=== PATIENT | female | born 1995 | race Caucasian/White ===

== ENCOUNTER 2016-09-15 23:03 | Outpatient (CLI) | payer MEDICAID ==
[~2016-09-15] VITALS: Ht 143.5 cm; Wt 70.6 kg
[2016-09-15 23:30] VITALS: BP 112/59; PULSE 110; RESP 18
[2016-09-15] MEDS ORDERED: PRENAT PO (23:32)
[2016-09-16] MEDS ORDERED: LACTATED RINGER'S 1,000 ML IV ONE (00:30)
[2016-09-16 00:34] LABS: BASOPHILS % 0.3 % (0.0-2.0); EOSINOPHILS # 0.2 10^3/ul (0.0-0.5); EOSINOPHILS % 1.4 % (0.0-7.0); HEMATOCRIT 29.8 % (37.0-47.0); LYMPHOCYTES # 2.7 10^3/ul (0.8-2.9); MEAN CORPUSCULAR HEMOGLOBIN 29.4 pg (29.0-33.0); MEAN CORPUSCULAR HGB CONC 33.6 g/dl (32.0-37.0); MEAN CORPUSCULAR VOLUME 87.6 fl (72.0-104.0); MEAN PLATELET VOLUME 9.9 fl (7.4-10.4); MONOCYTE # 0.7 10^3/ul (0.3-0.9); MONOCYTES % 6.7 % (0.0-13.0); NEUTROPHIL # 6.8 10^3/ul (1.6-7.5); NEUTROPHILS % 65.2 % (30.0-74.0); PLATELET COUNT 323 10^3/UL (140-415); RED CELL DISTRIBUTION WIDTH 13.1 % (11.5-14.5); WHITE BLOOD COUNT 10.4 10^3/ul (4.8-10.8)
[2016-09-16 00:46] LABS: ADD UMIC YES; UR AMORPHOUS CRYSTAL FEW /HPF (NONE SEEN); UR ASCORBIC ACID NEGATIVE (NEGATIVE); UR BILIRUBIN (Dip) NEGATIVE (NEGATIVE); UR BLOOD (Dip) NEGATIVE (NEGATIVE); UR CLARITY CLOUDY (CLEAR); UR COLOR YELLOW (YELLOW); UR GLUCOSE (Dip) 3+ mg/dL (NEGATIVE); UR KETONES (Dip) TRACE mg/dL (NEGATIVE); UR LEUKOCYTE ESTERASE (Dip) 3+ Leu/ul (NEGATIVE); UR NITRITE (Dip) NEGATIVE (NEGATIVE); UR RBC 1 /HPF (0-5); UR SPECIFIC GRAVITY (Dip) 1.016 (1.003-1.030); UR SQUAMOUS EPITHELIAL CELL MANY /HPF (FEW); UR TOTAL PROTEIN (Dip) NEGATIVE (NEGATIVE); UR UROBILINOGEN (Dip) NEGATIVE (NEGATIVE)
[2016-09-16 00:54] LABS: ALBUMIN 3.4 g/dl (3.3-4.9); ALBUMIN/GLOBULIN RATIO 0.97; CREATININE 0.53 mg/dl (0.44-1.00); POTASSIUM 3.5 mmol/L (3.5-5.1); TOTAL PROTEIN 6.9 g/dl (6.1-8.1)
[2016-09-16] MEDS ORDERED: LACTATED RINGER'S 1,000 ML IV SCH (01:00)
--- NOTE | 2016-09-16 01:45 | RADRPT ---
PROCEDURE: US OB biophysical profile. CLINICAL INDICATION: Contractions TECHNIQUE: Multiple sonographic images of the pelvis were obtained. The images were reviewed on a PACS workstation. COMPARISON: No pertinent prior examinations were submitted for comparison. FINDINGS: There is a single viable intrauterine gestation. Cardiac activity is present with 144 beats per min lizeth. There is a vertex presentation. The placenta is anterior, grade 1 appearance. There is a normal amount of amniotic fluid with an TEJAS = 13.4 cm. The cervix is long and closed, measuring up to 4.1 cm. Biophysical profile: movement 2/2 tone 2/2. breathing 2/2 TEJAS 2/2 Total 09/16 IMPRESSION: Normal biophysical profile. RPTAT: HIKT . .Reggie Rothman MD, Date Time Electronically viewed and signed by .Reggie Rothman MD, on 09/16/2016 01:45 .T/
--- NOTE | 2016-09-16 01:45 | RADRPT ---
PROCEDURE: US OB. CLINICAL INDICATION: Contractions. TECHNIQUE: Multiple sonographic images of the pelvis were obtained. Transabdominal imaging only w as performed. The images were reviewed on a PACS workstation. COMPARISON: 07/02/2016. FINDINGS: Single live intrauterine is identified. Cardiac activity is present with 148 beats per mi nute. There is a vertex presentation. Measurements: BPD = 30 weeks 4 days. HC = 30 weeks 6 days. AC = 31 weeks 6 days. FL = 30 weeks 5 days. Estimated gestational age of approximately 31 weeks 0 days. The estimated date of delivery is 11/18/2016. The EFW = 1742 g which is at the 64th percentile. IMPRESSION: Single live intrauterine gestation of approximately 31 weeks 0 days. RPTAT: HMVK .Krishna Cruz MD, Date Time Electronically viewed and signed by .Krishna Cruz MD, on 09/16/2016 01:44 .K/
[2016-09-16] MEDS ORDERED: TERBUTALINE 1 ML ONE (03:50)
[2016-09-16] MEDS ORDERED: TERBUTALINE 1 MG/ML INJ SC ONE (04:00)
--- NOTE | 2016-09-16 04:00 | PN ---
Triage Information Date/Time August 16, 2016 Reason for visit: Uterine contractions Weeks of Gestation 30 weeks 5 days /Para 3/2 Diabetes: none Hypertention: none Additional information C/O contractions. H/O labor and delivery at 33 weeks for her first . Her 2nd baby delivered at 38 weeks. PMHx: none. PSHx: none. NKDA. Objective Vital Signs Date Time Temp Pulse Resp B/P Pulse Ox O2 Delivery O2 Flow Rate FiO2 09/15/16 23:30 98.4 110 18 112/59 Room Air Heart Rate Comments Baseline 140 bpm with accels to 160 bpm. No decels. Contractions: 6-10 Minutes Apart Results/Medications Result Diagram: 09/16/16 0015 09/16/16 0015 Results 24 hrs Laboratory Tests Test 09/15/16 23:50 09/16/16 00:15 Urine Color YELLOW Urine Clarity CLOUDY A Urine pH 7.0 Urine Specific [place] 1.016 Urine Ketones TRACE A Urine Nitrite NEGATIVE Urine Bilirubin NEGATIVE Urine Urobilinogen NEGATIVE Urine Leukocyte Esterase 3+ H Urine Microscopic RBC 1 Urine Microscopic WBC 4 Urine Squamous Epithelial Cells MANY A Urine Amorphous Crystals FEW A Urine Hemoglobin NEGATIVE Urine Glucose 3+ H Urine Total Protein NEGATIVE White Blood Count 10.4 Red Blood Count 3.40 L Hemoglobin 10.0 L Hematocrit 29.8 L Mean Corpuscular Volume 87.6 Mean Corpuscular Hemoglobin 29.4 Mean Corpuscular Hemoglobin Concent 33.6 Red Cell Distribution Width 13.1 Platelet Count 323 Mean Platelet Volume 9.9 Neutrophils % 65.2 Lymphocytes % 26.0 Monocytes % 6.7 Eosinophils % 1.4 Basophils % 0.3 Nucleated Red Blood Cells % 0.0 Neutrophils # 6.8 Lymphocytes # 2.7 Monocytes # 0.7 Eosinophils # 0.2 Basophils # 0.0 Nucleated Red Blood Cells # 0.0 Sodium Level 139 Potassium Level 3.5 Chloride Level 103 Carbon Dioxide Level 23 Anion Gap 17 H Blood Urea Nitrogen 7 Creatinine 0.53 Glucose Level 107 Calcium Level 9.0 Total Bilirubin 0.0 L Direct Bilirubin 0.00 Indirect Bilirubin 0.0 Aspartate Amino Transf (AST/SGOT) 24 Alanine Aminotransferase (ALT/SGPT) 39 Alkaline Phosphatase 130 H Total Protein 6.9 Albumin 3.4 Globulin 3.50 H Albumin/Globulin Ratio 0.97 Medications Current Medications Lactated Ringer's (Lr) 1,000 ml @ 125 mls/hr Q8H IV Last administered on t 01:48; Admin Dose 125 MLS/HR; Start 09/16/16 at 01:00 Terbutaline Sulfate (Brethine) 0.25 mg ONCE ONCE SC ; Start 09/16/16 at 04:00; Stop 09/16/16 at 04:01; Status UNV Imaging Results BPP 09/16. AF! 13.4 cm. Cervix is long, closed and 4.1 cm. EFW 1742 grams (S=D). VTX. Disposition: Discharge Assessment/Plan A: IUP at 30w 5d. False labor. H/O labor with delivery. P: IV hydration. Terbutaline SQ x 1; if needs a repeat, will give. If UC's adriana then will d/c home with PTL precautions. BART PATTERSON MD Sep 16, 2016 04:00
== END 2016-09-16 05:10 | disposition home or self-care (01) ==
LOC: L-D 23:03 → OBT 23:03
PROVIDERS: ATTEND Obstetrics & Gynecology
DX: O62.9 Abnormality of forces of labor, unspecified (principal); Z3A.30 30 weeks gestation of pregnancy
CPT/HCPCS: 36415; 76815; 76817; 76818; 80053; 81001; 85025; 96360; 96361; 96372; J3105; J7120; Z7500; G0463

== ENCOUNTER 2016-10-31 00:25 | Outpatient (CLI) | payer MEDICAID ==
[~2016-10-31] VITALS: Ht 144.8 cm; Wt 72.6 kg
[~2016-10-31 00:25] MED LIST: PRENAT PO
--- NOTE | 2016-10-31 00:47 | TRIAGE ---
OB Triage Datetime Report Generated by CPN: 10/31/2016 00:47 Datetime: 10/31/2016 00:47 Time of Arrival: 10/31/2016 00:22 EGA: 37.1 Movement: Decreased Contractions: Irregular Patient Complaints: Contractions Datetime: 09/16/2016 04:49 Stage of : OB Triage Monitor Mode: External Quality: Mild Pattern: Normal: <= 5 Contractions in 10 Minutes Resting Tone [place]: Relaxed Heart Rate FHR Baseline Rate: 135 Monitor Mode: External US FHR Baseline Changes: No Baseline Change Variability: Moderate 6-25 bpm Accelerations: 15X15 Decelerations: None Category: Category I Pain Assessment Pain Scale: 2 Pain Presence: Intermittent Pain Type: Cramping Pain Location: Abdomen Datetime: 09/16/2016 03:26 Stage of : OB Triage Datetime: 09/16/2016 03:20 Stage of : OB Triage Monitor Mode: External Quality: Mild Pattern: Normal: <= 5 Contractions in 10 Minutes Resting Tone [place]: Relaxed Heart Rate FHR Baseline Rate: 135 Monitor Mode: External US FHR Baseline Changes: No Baseline Change Variability: Moderate 6-25 bpm Accelerations: 15X15 Category: Category I Datetime: 09/16/2016 02:50 Stage of : OB Triage Monitor Mode: External Quality: Mild Pattern: Normal: <= 5 Contractions in 10 Minutes Resting Tone [place]: Relaxed Heart Rate FHR Baseline Rate: 135 Monitor Mode: External US Variability: Moderate 6-25 bpm Accelerations: 15X15 Decelerations: None Category: Category I Pain Assessment Pain Scale: 4 Pain Presence: Intermittent Pain Type: Contraction Pain Location: Abdomen Datetime: 09/16/2016 01:43 Monitor Mode: Palpation Resting Tone [place]: Relaxed Datetime: 09/16/2016 01:23 Stage of : OB Triage Heart Rate FHR Baseline Rate: 140 Monitor Mode: External US FHR Baseline Changes: No Baseline Change Variability: Moderate 6-25 bpm Accelerations: 15X15 Decelerations: None Category: Category I Datetime: 09/16/2016 00:41 Stage of : OB Triage Monitor Mode: External US FHR Baseline Changes: No Baseline Change Variability: Moderate 6-25 bpm Datetime: 09/16/2016 00:30 Stage of : OB Triage Monitor Mode: External Quality: Mild Pattern: Normal: <= 5 Contractions in 10 Minutes Resting Tone [place]: Relaxed Heart Rate FHR Baseline Rate: 140 Monitor Mode: External US FHR Baseline Changes: No Baseline Change Variability: Moderate 6-25 bpm Accelerations: 15X15 Decelerations: None Category: Category I Datetime: 09/15/2016 23:35 Stage of : OB Triage Labor Evaluation Frequency: 3-5 Monitor Mode: External Duration (sec)2399: 50-90 Quality: Mild Pattern: Normal: <= 5 Contractions in 10 Minutes Resting Tone [place]: Relaxed Heart Rate FHR Baseline Rate: 140 Monitor Mode: External US FHR Baseline Changes: No Baseline Change Variability: Moderate 6-25 bpm Accelerations: 15X15 Decelerations: None Category: Category I Datetime: 09/15/2016 23:26 Time of Arrival: 09/15/2016 22:58 EGA: 30.4 Arrived By: Wheelchair Arrived From: Home Chief Complaint: w/ hx PTD @ 34 wks w/ c/o ucs Movement: Present Contractions: Irregular Time Contractions Began: 09/15/2016 17:00 Contractions: Q10-15 Rupture of Membranes: Denies Vaginal Bleeding: None Vaginal Discharge: Denies Recent Sexual Intercouse: Denies Abdominal Trauma: Not Applicable Patient Complaints: Cramping Time Provider Notified: 09/15/2016 23:35 Provider Notified: Dr Kolb Initial Plan: EFM, UA,CBC,CMP,CVL,EFW,BPP,IV hydration Datetime: 09/15/2016 23:13 Stage of : OB Triage Maternal Assessment Level of Consciousness: Fully Conscious Headache: Denies Blurred Vision: No Respiratory Effort: Unlabored Nausea/Vomiting: Denies RUQ Epigastric Pain: Denies Facial Edema: None Labor Evaluation Frequency: placed Monitor Mode: External Resting Tone [place]: Relaxed Monitor Mode: External US Comments: FHT 150 Pain Assessment Pain Scale: 7 Pain Presence: Intermittent Pain Type: Cramping Pain Location: Abdomen
[2016-10-31 00:55] VITALS: Ht 144.8 cm; Wt 72.6 kg
[2016-10-31 00:56] VITALS: BP 113/65; PULSE 90; RESP 18
--- NOTE | 2016-10-31 02:06 | RADRPT ---
PROCEDURE: OB ultrasound for biophysical profile CLINICAL INDICATION: Contractions. TECHNIQUE: Multiple sonographic images of the gravid uterus performed. The images were reviewed on a PACS workstation. COMPARISON: 09/16/2016 FINDINGS: A single live intrauterine is identified with heart rate of 144 bpm. Fet us is in a cephalic presentation. Placenta is located anterior. Biophysical profile: breathing movement = 2/2 tone = 2/2 motion = 2/2 TEJAS = 2/2 TEJAS = 11.3 cm. Cervix is 4.1 cm in length. IMPRESSION: 1. Single live intrauterine gestation. 2. Biophysical profile = 09/16. 3. TEJAS = 11.3 cm. RPTAT: HMVK .Krishna Cruz MD, Date Time Electronically viewed and signed by .Krishna Cruz MD, MD on 10/31/2016 02:06 .K/
--- NOTE | 2016-10-31 02:09 | RADRPT ---
PROCEDURE: US OB. CLINICAL INDICATION: Labor. TECHNIQUE: Multiple sonographic images of the pelvis were obtained. Transabdominal imaging only w as performed. The images were reviewed on a PACS workstation. COMPARISON: 09/16/2016. FINDINGS: Single live intrauterine is identified. Cardiac activity is present with 157 beats per mi nute. There is a vertex presentation. Measurements: BPD = 34 weeks 2 days. HC = 35 weeks 1 day. AC = 39 weeks 5 days. FL = 36 weeks 3 days. Estimated gestational age of approximately 36 weeks 3 days. The estimated date of delivery is 11/25/2016. The EFW = 3292 g / 7 pounds 4 ounces which is at the 50th percentile. The placenta is anterior. IMPRESSION: Single live intrauterine gestation of approximately 36 weeks 3 days. RPTAT: HMVK .Krishna Cruz MD, Date Time Electronically viewed and signed by .Krishna Cruz MD, on 10/31/2016 02:09 .K/
[2016-10-31 02:55] LABS: ADD UMIC NO; UR ASCORBIC ACID NEGATIVE (NEGATIVE); UR BILIRUBIN (Dip) NEGATIVE (NEGATIVE); UR BLOOD (Dip) NEGATIVE (NEGATIVE); UR CLARITY CLEAR (CLEAR); UR COLOR STRAW (YELLOW); UR GLUCOSE (Dip) NEGATIVE (NEGATIVE); UR KETONES (Dip) NEGATIVE (NEGATIVE); UR LEUKOCYTE ESTERASE (Dip) NEGATIVE Leu/ul (NEGATIVE); UR NITRITE (Dip) NEGATIVE (NEGATIVE); UR SPECIFIC GRAVITY (Dip) 1.002 (1.003-1.030); UR TOTAL PROTEIN (Dip) NEGATIVE (NEGATIVE); UR UROBILINOGEN (Dip) NEGATIVE (NEGATIVE)
[2016-10-31] MEDS ORDERED: METHYLERGONOVINE 0.2 MG INJ IM PRN (04:00)
[2016-10-31] MEDS ORDERED: IBUPROFEN 600 MG TAB PO PRN (04:00)
[2016-10-31] MEDS ORDERED: BUTORPHANOL 2 MG INJ IV PRN (04:00)
[2016-10-31] MEDS ORDERED: MISOPROSTOL 200 MCG TAB PR PRN (04:00)
[2016-10-31] MEDS ORDERED: OXYTOCIN 30 UNITS/LR 500 ML IV PRN (04:00)
[2016-10-31] MEDS ORDERED: CARBOPROST 250 MCG INJ IM PRN (04:00)
[2016-10-31] MEDS ORDERED: OXYTOCIN 30 UNITS/LR 500 ML IV SCH ×2 (04:00)
[2016-10-31] MEDS ORDERED: LIDOCAINE 1% (MPF) 30 ML INJ INJ PRN (04:00)
[2016-10-31] MEDS ORDERED: MINERAL OIL LIGHT 10 ML VIAL TOP ONE (04:00)
[2016-10-31] MEDS: LACTATED RINGER'S 1,000 ML IV SCH ×3 (04:54→17:18)
[2016-10-31 05:09] LABS: BASOPHIL # 0.1 10^3/ul (0.0-0.1); BASOPHILS % 0.6 % (0.0-2.0); EOSINOPHILS # 0.1 10^3/ul (0.0-0.5); EOSINOPHILS % 1.3 % (0.0-7.0); HEMATOCRIT 32.6 % (37.0-47.0); HEMOGLOBIN 10.2 g/dl (12.0-16.0); LYMPHOCYTES # 2.7 10^3/ul (0.8-2.9); MEAN CORPUSCULAR HEMOGLOBIN 26.2 pg (29.0-33.0); MEAN CORPUSCULAR HGB CONC 31.3 g/dl (32.0-37.0); MEAN CORPUSCULAR VOLUME 83.8 fl (72.0-104.0); MEAN PLATELET VOLUME 10.8 fl (7.4-10.4); MONOCYTE # 0.4 10^3/ul (0.3-0.9); NEUTROPHIL # 5.4 10^3/ul (1.6-7.5); NEUTROPHILS % 61.8 % (30.0-74.0); PLATELET COUNT 319 10^3/UL (140-415); RED BLOOD COUNT 3.89 10^6/ul (4.20-5.40); RED CELL DISTRIBUTION WIDTH 15.4 % (11.5-14.5); WHITE BLOOD COUNT 8.8 10^3/ul (4.8-10.8)
--- NOTE | 2016-10-31 05:24 | HP ---
Date/Time of Note Date/Time of Note DATE: 10/31/16 TIME: 05:17 OB - History Hx of Present Free Text/Dictation 20y .o [id number] A0 at 37w 1d c/o DFM and cramping pain q 5min with intact membrane. initial VE 60/-2 re exam in 2hrs 60/-2 BPP 8/8 TEJAS 11.3 EFW 3292 EFM u.c 3-8min tracing cat I admitted for expectant management. Chief Complaint: DFM and cramping pain on lower abdomen Estimated Due Date: Nov 12, 2016 : 3 Para: 2 Spontaneous : 0 Therapeutic : 0 Care: Good Care Ultrasounds: Normal mid trimester US Obstetrical Complications: None Medical Complications: None Past Family/Social History * Past Medical, Surgical, Family and Obstetric Histories reviewed from chart. Blood Type: O+ Rubella: immune RPR/VDRL: Negative GBS Status: Negative HBsAG: Negative OB Admission Exam Vital Signs Vital Signs Vital Signs Date Time Temp Pulse Resp B/P Pulse Ox O2 Delivery O2 Flow Rate FiO2 10/31/16 00:56 98.0 90 18 113/65 Room Air Physical Exam HEENT: WNL Heart: Rhythm Normal Lungs: Clear, Equal Abdomen: WNL Extremities: Normal Reflexes: Normal Cervical Dilatation: 3cm Effacement: Other (60%) Station: -2 Membranes: Intact Amniotic Fluid: Unevaluable Heart Rate: 140's Accelerations: Accelerations Present Decelerations: No Decelerations Varibility: Moderate Contractions on Admission: < 5 Minutes Apart Intensity: Mild Last 72 hours Lab Results CBC & BMP 10/31/16 04:36 OB Assessment/Plan Other Assessment: IUP 37w1d in labor Plan: Expectant Management NATA PAN MD Oct 31, 2016 05:24
[2016-10-31 05:25] LABS: PROTIME 13.2 Sec (12.2-14.2)
[2016-10-31 05:26] LABS: PARTIAL THROMBOPLASTIN TIME 25.6 Sec (25.0-35.0)
[2016-10-31] MEDS ORDERED: LACTATED RINGER'S 1,000 ML IV PRN (06:00)
[2016-10-31 07:38] LABS: BARBITURATES Negative (NEGATIVE); BENZODIAZEPINES Negative (NEGATIVE); CANNABINOIDS Negative (NEGATIVE); COCAINE Negative (NEGATIVE); OPIATES Negative (NEGATIVE)
--- NOTE | 2016-10-31 21:04 | DS ---
Date/Time of Note Date/Time of Note DATE: 10/31/16 TIME: 21:03 Obstetrical Discharge Record Final Diagnosis Final Diagnosis: Term not delivered Condition on Discharge Physical Assessment Voiding: Yes Bowel Movement: Yes Calf Tenderness: No Patient Condition: Stable LEONILA JENSEN MD Oct 31, 2016 21:04
== END 2016-10-31 20:30 | disposition home or self-care (01) ==
LOC: OBT 00:25 → L-D 00:25 → INTOOBSV 03:45 → UNDOADMOB 03:45 → OBT 03:45 → L-D 03:45 → OBT 20:30
PROVIDERS: ATTEND Obstetrics & Gynecology
DX: O36.8130 Decreased fetal movements, third trimester, not applicable or unspecified (principal); O47.1 False labor at or after 37 completed weeks of gestation; Z3A.37 37 weeks gestation of pregnancy
CPT/HCPCS: 76815; 76818; 80307; 81003; 85025; 85610; 85730; 86592; 86900; 86901; 87340; J7120; Z7500; G0463

== ENCOUNTER 2016-11-02 15:44 | Outpatient (CLI) | payer MEDICAID ==
[~2016-11-02] VITALS: Ht 152.4 cm; Wt 72.4 kg
[2016-11-02 15:49] VITALS: BP 109/63; PULSE 89; RESP 19; Ht 152.4 cm; Wt 72.4 kg
--- NOTE | 2016-11-02 16:42 | RADRPT ---
PROCEDURE: US biophysical profile. CLINICAL INDICATION: Decreased motion. TECHNIQUE: Multiple sonographic images of the uterus were obtained. The images were revi ewed on a PACS workstation. COMPARISON: 10/31/2016. FINDINGS: There is a single live intrauterine gestation. heart rate is 139 beats per minute. The position is cephalic. The placenta is anterior with no abruption or previa. The TEJAS is 13.2 cm. (Normal = 5-20 cm.) Breathing Movement: 2 Gross Body Movement: 2 Tone: 2 Qualitative Amniotic Fluid Volume: 2 TOTAL: 8 IMPRESSION: 1. The biophysical score is 8/8. RPTAT: QQ .Lucho Daniel MD, MD Date Time Electronically viewed and signed by .Lucho Daniel MD, on 11/02/2016 16:42 .R/
--- NOTE | 2016-11-02 18:39 | PN ---
Triage Information Date/Time Reason for visit: DFM Weeks of Gestation 38 weeks /Para Diabetes: none Hypertention: none Objective Vital Signs Date Time Temp Pulse Resp B/P Pulse Ox O2 Delivery O2 Flow Rate FiO2 11/02/16 15:49 97.4 89 19 109/63 99 Heart Rate: 130's Heart Rate Comments Category I Contractions: >10 Minutes Apart Exam 3 cm, no cervical change Results/Medications Imaging Results BPP 09/16 Disposition: Discharge Assessment/Plan Antepartum Testing Reassuring D/C home. LEONILA JENSEN MD Nov 02, 2016 18:38
--- NOTE | 2016-11-02 18:44 | TRIAGE ---
OB Triage Datetime Report Generated by CPN: 11/02/2016 18:44 Datetime: 11/02/2016 18:42 Stage of : OB Triage Level of Consciousness: Fully Conscious DTR's/Clonus: DTRs 1+ Headache: Denies Breath Sounds, Left: Clear and Equal Breath Sounds, Right: Clear and Equal Nausea/Vomiting: Denies RUQ Epigastric Pain: Denies Frequency: 10 Monitor Mode: External Duration (sec)2399: 60-70 Quality: Mild Pattern: Normal: <= 5 Contractions in 10 Minutes Resting [place]: Relaxed FHR Baseline Rate: 140 Monitor Mode: External US Variability: Moderate 6-25 bpm Accelerations: 15X15 Decelerations: None Pain Scale: 3 Pain Presence: Intermittent Pain Type: Contraction Pain Location: Back Pain Goal: 3 Membrane Status: Intact Datetime: 11/02/2016 18:00 Stage of : OB Triage Level of Consciousness: Fully Conscious DTR's/Clonus: DTRs 1+ Headache: Denies Breath Sounds, Left: Clear and Equal Breath Sounds, Right: Clear and Equal Nausea/Vomiting: Denies RUQ Epigastric Pain: Denies Frequency: 10 Monitor Mode: External Duration (sec)2399: 60-70 Quality: Mild Pattern: Normal: <= 5 Contractions in 10 Minutes Resting [place]: Relaxed FHR Baseline Rate: 140 Monitor Mode: External US Variability: Moderate 6-25 bpm Accelerations: 15X15 Decelerations: None Category: Category I Pain Scale: 3 Pain Presence: Intermittent Pain Type: Contraction Pain Location: Back Pain Goal: 3 Membrane Status: Intact Datetime: 11/02/2016 16:55 Stage of : OB Triage Level of Consciousness: Fully Conscious DTR's/Clonus: DTRs 1+ Headache: Denies Breath Sounds, Left: Clear and Equal Breath Sounds, Right: Clear and Equal Nausea/Vomiting: Denies RUQ Epigastric Pain: Denies Frequency: 10 Monitor Mode: External Duration (sec)2399: 60-70 Quality: Mild Pattern: Normal: <= 5 Contractions in 10 Minutes Resting [place]: Relaxed FHR Baseline Rate: 140 Monitor Mode: External US Variability: Moderate 6-25 bpm Accelerations: 15X15 Decelerations: None Category: Category I Membrane Status: Intact Datetime: 11/02/2016 16:08 Level of Consciousness: Fully Conscious DTR's/Clonus: DTRs 1+ Headache: Denies Blurred Vision: No Respiratory Effort: Unlabored Breath Sounds, Left: Clear and Equal Breath Sounds, Right: Clear and Equal Nausea/Vomiting: Denies RUQ Epigastric Pain: Denies Facial Edema: None Frequency: X2 Monitor Mode: External Duration (sec)2399: 60-70 Quality: Mild Pattern: Normal: <= 5 Contractions in 10 Minutes Resting [place]: Relaxed FHR Baseline Rate: 140 Monitor Mode: External US Variability: Moderate 6-25 bpm Accelerations: 15X15 Decelerations: None Category: Category I Membrane Status: Intact Datetime: 11/02/2016 15:52 Dilatation (cms): 3.0 Effacement (%): 60 Station: -2 Exam By: PRIYA DORANTES Vaginal Bleeding: None Cervix, Consistency: Soft Cervix, Position: Midposition Presentation 'A': Cephalic Datetime: 11/02/2016 15:48 Assessment Type: Triage Level of Consciousness: Fully Conscious DTR's/Clonus: DTRs 2+; No Clonus Headache: Denies Blurred Vision: No Respiratory Effort: Unlabored; Regular Rhythm; Equal Expansion Breath Sounds, Left: Clear and Equal Breath Sounds, Right: Clear and Equal Nausea/Vomiting: Denies RUQ Epigastric Pain: Denies Lower Extremities Edema: None Degree: None Upper Extremities Edema: None Degree: None Facial Edema: None History of Falling: (0) No Secondary Diagnosis: (0) No Ambulatory Aid: (0) Bedrest/Nurse Assist IV Therapy: (0) No Gait: (0) Normal/Bedrest/Immobile Mental Status: (0) Oriented to Own Ability Fall Score: 0 Fall Risk Score Definition: No Risk: No action required Datetime: 11/02/2016 15:38 Time of Arrival: 11/02/2016 15:38 EGA: 38.4 Arrived By: Wheelchair Arrived From: Home Chief Complaint: PT CAME IN FOR F/U OF DFM AND HAVING UC'S. Movement: Present Contractions: Irregular Time Contractions Began: 11/02/2016 06:00 Contractions: 6 Rupture of Membranes: Denies Vaginal Bleeding: None Vaginal Discharge: Denies Recent Sexual Intercouse: Denies Abdominal Trauma: Not Applicable Patient Complaints: Contractions Additional Patient Complaints: NONE Time Provider Notified: 11/02/2016 16:10 Provider Notified: MIKEY Initial Plan: MONITOR AND VE BPP Datetime: 10/31/2016 20:00 Frequency: IRREGULAR Monitor Mode: External Duration (sec)2399: 50-110 Quality: Mild Pattern: Normal: <= 5 Contractions in 10 Minutes Resting [place]: Relaxed FHR Baseline Rate: 130 Monitor Mode: External US Variability: Moderate 6-25 bpm Accelerations: 15X15 Decelerations: None Category: Category I Datetime: 10/31/2016 19:58 Dilatation (cms): 2.5 Effacement (%): 50 Station: -2 Exam By: DR. JENSEN Datetime: 10/31/2016 19:21 Assessment Type: Ongoing Assessment Level of Consciousness: Fully Conscious DTR's/Clonus: DTRs 2+; No Clonus Headache: Denies Blurred Vision: No Respiratory Effort: Unlabored; Regular Rhythm; Equal Expansion Breath Sounds, Left: Clear and Equal Breath Sounds, Right: Clear and Equal Nausea/Vomiting: Denies RUQ Epigastric Pain: Denies Lower Extremities Edema: None Degree: None Upper Extremities Edema: None Degree: None Facial Edema: None History of Falling: (0) No Secondary Diagnosis: (0) No Ambulatory Aid: (0) Bedrest/Nurse Assist IV Therapy: (0) No Gait: (0) Normal/Bedrest/Immobile Mental Status: (0) Oriented to Own Ability Fall Score: 0 Fall Risk Score Definition: No Risk: No action required Datetime: 10/31/2016 19:05 Frequency: OCC Monitor Mode: External Quality: Moderate Pattern: Normal: <= 5 Contractions in 10 Minutes Resting [place]: Relaxed FHR Baseline Rate: 130 Monitor Mode: External US FHR Baseline Changes: No Baseline Change Variability: Moderate 6-25 bpm Accelerations: 15X15 Decelerations: None Category: Category I Pain Scale: 4 Pain Presence: Intermittent Pain Type: Contraction Pain Location: Abdomen; Back Pain Goal: 2 Pain Relief Measures: Comfort Measures Datetime: 10/31/2016 18:00 Frequency: 5-10 Monitor Mode: External Duration (sec)2399: 60-120 Quality: Moderate Pattern: Normal: <= 5 Contractions in 10 Minutes Resting [place]: Relaxed FHR Baseline Rate: 135 Monitor Mode: External US FHR Baseline Changes: No Baseline Change Variability: Moderate 6-25 bpm Accelerations: 15X15 Decelerations: None Category: Category I Pain Scale: 5 Pain Presence: Intermittent Pain Type: Contraction Pain Location: Abdomen; Back Pain Goal: 2 Pain Relief Measures: Comfort Measures Datetime: 10/31/2016 17:03 Frequency: 6-10 Monitor Mode: External Duration (sec)2399: 60-120 Quality: Moderate Pattern: Normal: <= 5 Contractions in 10 Minutes Resting [place]: Relaxed FHR Baseline Rate: 145 Monitor Mode: External US FHR Baseline Changes: No Baseline Change Variability: Moderate 6-25 bpm Accelerations: 15X15 Decelerations: None Category: Category I Pain Scale: 5 Pain Presence: Intermittent Pain Type: Contraction Pain Location: Abdomen; Back Pain Goal: 2 Pain Relief Measures: Comfort Measures Datetime: 10/31/2016 16:00 Frequency: 3-10 Monitor Mode: External Duration (sec)2399: 60-120 Quality: Moderate Pattern: Normal: <= 5 Contractions in 10 Minutes Resting [place]: Relaxed FHR Baseline Rate: 145 Monitor Mode: External US FHR Baseline Changes: No Baseline Change Variability: Moderate 6-25 bpm Accelerations: 15X15 Decelerations: None Category: Category I Pain Scale: 5 Pain Presence: Intermittent Pain Type: Contraction Pain Location: Abdomen Pain Goal: 2 Pain Relief Measures: Comfort Measures Datetime: 10/31/2016 15:06 Frequency: 5-10 Monitor Mode: External Duration (sec)2399: 60-120 Quality: Moderate Pattern: Normal: <= 5 Contractions in 10 Minutes Resting [place]: Relaxed FHR Baseline Rate: 140 Monitor Mode: External US FHR Baseline Changes: No Baseline Change Variability: Moderate 6-25 bpm Accelerations: 15X15 Decelerations: None Category: Category I Pain Scale: 4 Pain Presence: Intermittent Pain Type: Contraction Pain Location: Abdomen Pain Goal: 2 Pain Relief Measures: Comfort Measures Datetime: 10/31/2016 14:00 Frequency: 6-10 Monitor Mode: External Duration (sec)2399: 60-120 Quality: Moderate Pattern: Normal: <= 5 Contractions in 10 Minutes Resting [place]: Relaxed FHR Baseline Rate: 140 Monitor Mode: External US FHR Baseline Changes: No Baseline Change Variability: Moderate 6-25 bpm Accelerations: 15X15 Decelerations: None Category: Category I Pain Scale: 5 Pain Presence: Intermittent Pain Type: Contraction Pain Location: Abdomen Pain Goal: 2 Pain Relief Measures: Comfort Measures Datetime: 10/31/2016 13:00 Frequency: 3-6 Monitor Mode: External Duration (sec)2399: 50-120 Quality: Moderate Pattern: Normal: <= 5 Contractions in 10 Minutes Resting [place]: Relaxed FHR Baseline Rate: 145 Monitor Mode: External US FHR Baseline Changes: No Baseline Change Variability: Moderate 6-25 bpm Accelerations: 15X15 Decelerations: None Category: Category I Pain Scale: 5 Pain Presence: Intermittent Pain Type: Contraction Pain Location: Abdomen Pain Goal: 2 Pain Relief Measures: Comfort Measures Datetime: 10/31/2016 12:00 Temperature Route: Oral Frequency: 3-6 Monitor Mode: External Duration (sec)2399: 60-120 Quality: Moderate Pattern: Normal: <= 5 Contractions in 10 Minutes Resting [place]: Relaxed FHR Baseline Rate: 140 Monitor Mode: External US FHR Baseline Changes: No Baseline Change Variability: Moderate 6-25 bpm Accelerations: 15X15 Decelerations: None Category: Category I Pain Scale: 6 Pain Presence: Intermittent Pain Type: Contraction Pain Location: Back Pain Goal: 2 Pain Relief Measures: Comfort Measures Datetime: 10/31/2016 11:00 Frequency: 2-6 Monitor Mode: External Duration (sec)2399: 60-120 Quality: Moderate Pattern: Normal: <= 5 Contractions in 10 Minutes Resting [place]: Relaxed FHR Baseline Rate: 145 Monitor Mode: External US FHR Baseline Changes: No Baseline Change Variability: Moderate 6-25 bpm Accelerations: 15X15 Decelerations: None Category: Category I Pain Scale: 5 Pain Presence: Intermittent Pain Type: Contraction Pain Location: Abdomen Pain Goal: 2 Pain Relief Measures: Comfort Measures Datetime: 10/31/2016 10:00 Frequency: 2-5 Monitor Mode: External Duration (sec)2399: 60-120 Quality: Moderate Pattern: Normal: <= 5 Contractions in 10 Minutes Resting [place]: Relaxed FHR Baseline Rate: 145 Monitor Mode: External US FHR Baseline Changes: No Baseline Change Variability: Moderate 6-25 bpm Accelerations: 15X15 Decelerations: None Category: Category I Pain Scale: 5 Pain Presence: Intermittent Pain Type: Contraction Pain Location: Abdomen Pain Goal: 2 Pain Relief Measures: Comfort Measures Datetime: 10/31/2016 09:26 Frequency: 2-6 Monitor Mode: External Duration (sec)2399: 50-100 Quality: Moderate Pattern: Normal: <= 5 Contractions in 10 Minutes Resting [place]: Relaxed FHR Baseline Rate: 150 Monitor Mode: External US FHR Baseline Changes: No Baseline Change Variability: Moderate 6-25 bpm Accelerations: 15X15 Decelerations: None Category: Category I Pain Scale: 5 Pain Presence: Intermittent Pain Type: Contraction Pain Location: Abdomen Pain Goal: 2 Pain Relief Measures: Comfort Measures Datetime: 10/31/2016 09:20 Dilatation (cms): 2.0 Effacement (%): 60 Station: -3 Exam By: Vilam RN Datetime: 10/31/2016 08:25 Frequency: 4-6 Monitor Mode: External Duration (sec)2399: 60-120 Quality: Moderate Pattern: Normal: <= 5 Contractions in 10 Minutes Resting [place]: Relaxed FHR Baseline Rate: 145 Monitor Mode: External US FHR Baseline Changes: No Baseline Change Variability: Moderate 6-25 bpm Accelerations: 15X15 Decelerations: None Category: Category I Pain Scale: 5 Pain Presence: Intermittent Pain Type: Contraction Pain Location: Abdomen Pain Goal: 2 Pain Relief Measures: Comfort Measures Datetime: 10/31/2016 08:00 Frequency: 2-5 Monitor Mode: External Duration (sec)6335: 60-90 Quality: Strong Pattern: Normal: <= 5 Contractions in 10 Minutes Resting [place]: Relaxed FHR Baseline Rate: 140 Monitor Mode: External US FHR Baseline Changes: No Baseline Change Variability: Moderate 6-25 bpm Accelerations: 15X15 Decelerations: None Category: Category I Pain Scale: 5 Pain Presence: Intermittent Pain Type: Contraction Pain Location: Abdomen Pain Goal: 2 Pain Relief Measures: Comfort Measures Datetime: 10/31/2016 07:37 Assessment Type: Ongoing Assessment Level of Consciousness: Fully Conscious DTR's/Clonus: DTRs 2+; No Clonus Headache: Denies Blurred Vision: No Respiratory Effort: Unlabored; Regular Rhythm; Equal Expansion Breath Sounds, Left: Clear and Equal Breath Sounds, Right: Clear and Equal Nausea/Vomiting: Denies RUQ Epigastric Pain: Denies Lower Extremities Edema: Bilateral Lower Extremities Degree: 1+ Upper Extremities Edema: None Degree: None Facial Edema: None History of Falling: (0) No Secondary Diagnosis: (0) No Ambulatory Aid: (0) Bedrest/Nurse Assist IV Therapy: (20) Yes Gait: (0) Normal/Bedrest/Immobile Mental Status: (0) Oriented to Own Ability Fall Score: 20 Fall Risk Score Definition: No Risk: No action required Frequency: 3-6 Monitor Mode: External Duration (sec)2397: 60-120 Quality: Moderate Pattern: Normal: <= 5 Contractions in 10 Minutes Resting [place]: Relaxed FHR Baseline Rate: 140 Monitor Mode: External US FHR Baseline Changes: No Baseline Change Variability: Minimal - Undetectable to <=5 bpm Accelerations: 15X15 Decelerations: None Category: Category II Pain Scale: 5 Pain Presence: Intermittent Pain Type: Contraction Pain Location: Abdomen; Back Pain Goal: 2 Pain Relief Measures: Comfort Measures Datetime: 10/31/2016 07:00 Stage of : Labor Frequency: 2-9 Monitor Mode: External Duration (sec)2399: 40-90 Quality: Moderate Pattern: Normal: <= 5 Contractions in 10 Minutes Resting [place]: Relaxed FHR Baseline Rate: 145 Monitor Mode: External US Variability: Moderate 6-25 bpm Accelerations: 15X15 Decelerations: None Category: Category I Datetime: 10/31/2016 06:38 Assessment Type: Ongoing Assessment Datetime: 10/31/2016 06:00 Stage of : Labor Frequency: 2-4 Monitor Mode: External Duration (sec)2399: 40-110 Quality: Moderate Pattern: Normal: <= 5 Contractions in 10 Minutes Resting [place]: Relaxed FHR Baseline Rate: 135 Monitor Mode: External US Variability: Moderate 6-25 bpm Accelerations: 15X15 Decelerations: None Category: Category I Datetime: 10/31/2016 05:00 Stage of : Labor Frequency: 2-4 Monitor Mode: External Duration (sec)2399: 40-80 Quality: Moderate Pattern: Normal: <= 5 Contractions in 10 Minutes Resting [place]: Relaxed Contraction Comments: ABDOMEN SOFT ON PALPATION. RELAXATION IN BETWEEN UC'S NOTED. FHR Baseline Rate: 145 Monitor Mode: External US Variability: Moderate 6-25 bpm Accelerations: 15X15 Decelerations: None Category: Category I Datetime: 10/31/2016 04:45 Stage of : Labor Assessment Type: Admission Assessment Vaginal Bleeding: None Level of Consciousness: Fully Conscious DTR's/Clonus: DTRs 2+; No Clonus Headache: Denies Blurred Vision: No Respiratory Effort: Unlabored; Regular Rhythm; Equal Expansion Breath Sounds, Left: Clear and Equal Breath Sounds, Right: Clear and Equal Nausea/Vomiting: Denies RUQ Epigastric Pain: Denies Lower Extremities Edema: None Degree: None Upper Extremities Edema: None Degree: None Facial Edema: None History of Falling: (0) No Secondary Diagnosis: (0) No Ambulatory Aid: (0) Bedrest/Nurse Assist IV Therapy: (20) Yes Gait: (0) Normal/Bedrest/Immobile Mental Status: (0) Oriented to Own Ability Fall Score: 20 Fall Risk Score Definition: No Risk: No action required Pain Scale: 6 Pain Presence: Intermittent Pain Type: Contraction Pain Location: Abdomen Datetime: 10/31/2016 04:24 Monitor Mode: External Monitor Mode: External US Datetime: 10/31/2016 04:20 Time of Arrival: 10/31/2016 04:20 EGA: 38.2 Arrived By: Ambulatory Arrived From: Other Unit in Hospital Datetime: 10/31/2016 03:45 Stage of : OB Triage Datetime: 10/31/2016 03:41 Frequency: 2-4 Monitor Mode: External Duration (sec)2399: 60-110sec Quality: Moderate Pattern: Normal: <= 5 Contractions in 10 Minutes Resting [place]: Relaxed FHR Baseline Rate: 150 Monitor Mode: External US FHR Baseline Changes: No Baseline Change Variability: Moderate 6-25 bpm Accelerations: 15X15 Decelerations: Variable Category: Category II Pain Scale: 6 Pain Presence: Intermittent Pain Type: Contraction Pain Location: Abdomen Dilatation (cms): 3.0 Effacement (%): 60 Station: -2 Exam By: E Francisco Membrane Status: Intact Vaginal Bleeding: Scant Cervix, Consistency: Soft Cervix, Position: Posterior Presentation 'A': Cephalic Datetime: 10/31/2016 02:46 Stage of : OB Triage Frequency: 3-4 Monitor Mode: External Duration (sec)2399: 100-110sec Quality: Moderate Pattern: Normal: <= 5 Contractions in 10 Minutes Resting [place]: Relaxed FHR Baseline Rate: 140 Monitor Mode: External US FHR Baseline Changes: No Baseline Change Variability: Moderate 6-25 bpm Accelerations: 15X15 Decelerations: None Category: Category I Datetime: 10/31/2016 01:49 Stage of : OB Triage Monitor Mode: External Quality: Moderate Pattern: Normal: <= 5 Contractions in 10 Minutes Resting [place]: Relaxed FHR Baseline Rate: 150 Monitor Mode: External US FHR Baseline Changes: No Baseline Change Variability: Moderate 6-25 bpm Accelerations: 15X15 Decelerations: Variable Category: Category II Datetime: 10/31/2016 01:30 Stage of : OB Triage Datetime: 10/31/2016 01:12 Frequency: 2-8 Monitor Mode: External Duration (sec)2399: 40-90 Quality: Moderate Pattern: Normal: <= 5 Contractions in 10 Minutes Resting [place]: Relaxed FHR Baseline Rate: 140 Monitor Mode: External US FHR Baseline Changes: No Baseline Change Variability: Moderate 6-25 bpm Accelerations: 15X15 Decelerations: Variable Category: Category I Pain Scale: 5 Pain Presence: Intermittent Pain Type: Contraction Pain Location: Abdomen Dilatation (cms): 2.0 Effacement (%): 60 Station: -2 Exam By: Frank Singh Membrane Status: Intact Vaginal Bleeding: Scant Cervix, Consistency: Soft Cervix, Position: Posterior Presentation 'A': Cephalic Datetime: 10/31/2016 00:47 EGA: 38.2 Arrived By: Wheelchair Arrived From: Home Chief Complaint: c/o DFM x 2days and cramping Contractions: q5 Rupture of Membranes: Denies Vaginal Bleeding: None Vaginal Discharge: Denies Recent Sexual Intercouse: Denies Abdominal Trauma: Not Applicable Time Provider Notified: 10/31/2016 01:30 Provider Notified: Dr Price Initial Plan: EFM, UA, BPP,EFW Datetime: 10/31/2016 00:34 Stage of : OB Triage Level of Consciousness: Fully Conscious Headache: Denies Blurred Vision: No Respiratory Effort: Unlabored Nausea/Vomiting: Denies RUQ Epigastric Pain: Denies Facial Edema: None Frequency: placed Monitor Mode: External Resting [place]: Relaxed Monitor Mode: External US Comments: FHT 150 Pain Scale: 3 Pain Presence: Intermittent Pain Type: Cramping Pain Location: Abdomen Datetime: 09/15/2016 23:26 EGA: 31.5
== END 2016-11-02 18:58 | disposition home or self-care (01) ==
LOC: OBT 15:44 → L-D 15:44 → UNDOADMIN 18:57 → OBT 18:57
PROVIDERS: ATTEND Obstetrics & Gynecology
DX: O36.8130 Decreased fetal movements, third trimester, not applicable or unspecified (principal); Z3A.38 38 weeks gestation of pregnancy
CPT/HCPCS: 76818; G0463

== ENCOUNTER 2016-11-04 08:36 | Outpatient (CLI) | payer MEDICAID ==
[~2016-11-04] VITALS: Ht 144.8 cm; Wt 72.5 kg
[2016-11-04 09:05] VITALS: BP 105/53; PULSE 100; Ht 144.8 cm; Wt 72.5 kg
[2016-11-04] MEDS ORDERED: PNV11TAB PO (09:08)
--- NOTE | 2016-11-04 09:44 | RADRPT ---
PROCEDURE: US OB biophysical profile. CLINICAL INDICATION: decreased movements TECHNIQUE: Multiple sonographic images of the pelvis were obtained. The images were reviewed on a PACS workstation. COMPARISON: US PELVIS 11/02/2016 FINDINGS: There is a single viable intrauterine gestation. Cardiac activity is present with 148 beats per min [place]. There is a vertex presentation. The placenta is anterior. There is no evidence of placental abruption. There is a normal amount of amniotic fluid with an TEJAS = 8.8 cm. Biophysical profile: movement 2/2 tone 2/2. breathing 2/2 TEJAS 2/2 Total 09/16 RPTAT: AA . IMPRESSION: Normal biophysical profile. . .El Masters MD, MD Date Time Electronically viewed and signed by .El Masters MD, on 11/04/2016 09:44 .S/
--- NOTE | 2016-12-23 20:19 | PN ---
Triage Information Date/Time Date of Visit: 11/04/2016 Reason for visit: Follow up on decreased movement Weeks of Gestation 38 weeks /Para Diabetes: none Hypertention: none Objective Heart Rate Comments Category I Disposition: Discharge LEONILA JENSEN MD Dec 23, 2016 20:19
== END 2016-11-04 11:10 | disposition home or self-care (01) ==
LOC: OBT 08:36 → L-D 08:36 → OBT 11:10
PROVIDERS: ATTEND Obstetrics & Gynecology
DX: O36.8130 Decreased fetal movements, third trimester, not applicable or unspecified (principal); Z3A.38 38 weeks gestation of pregnancy
CPT/HCPCS: 76818; Z7500; G0463

== ENCOUNTER 2016-11-10 22:44 | Inpatient (IN) | payer MEDICAID ==
[~2016-11-10] VITALS: Ht 142.2 cm; Wt 73.1 kg
[~2016-11-10 22:44] MED LIST changes: +PNV11TAB PO; -PRENAT PO
[2016-11-10] MEDS ORDERED: METHYLERGONOVINE 0.2 MG INJ IM PRN (23:30)
[2016-11-10] MEDS ORDERED: OXYCODONE/ASPIRIN (4.88/325) TAB PO PRN (23:30)
[2016-11-10] MEDS ORDERED: BUTORPHANOL 2 MG INJ IV PRN (23:30)
[2016-11-10] MEDS ORDERED: CARBOPROST 250 MCG INJ IM PRN (23:30)
[2016-11-10] MEDS ORDERED: OXYTOCIN 30 UNITS/LR 500 ML IV PRN (23:30)
[2016-11-10] MEDS ORDERED: IBUPROFEN 600 MG TAB PO PRN (23:30)
[2016-11-10] MEDS ORDERED: OXYTOCIN 30 UNITS/LR 500 ML IV SCH ×2 (23:30)
[2016-11-10] MEDS ORDERED: LIDOCAINE 1% (MPF) 30 ML INJ INJ PRN (23:30)
[2016-11-10] MEDS ORDERED: LACTATED RINGER'S 1,000 ML IV PRN (23:30)
[2016-11-10] MEDS ORDERED: MISOPROSTOL 200 MCG TAB PR PRN (23:30)
[2016-11-11] MEDS: LACTATED RINGER'S 1,000 ML IV SCH ×3 (00:13→10:27)
[2016-11-11 00:18] VITALS: Ht 142.2 cm; Wt 73.1 kg
[2016-11-11] MEDS ORDERED: MINERAL OIL LIGHT 10 ML VIAL TOP PRN (00:30)
[2016-11-11 00:32] LABS: BASOPHILS % 0.5 % (0.0-2.0); EOSINOPHILS # 0.1 10^3/ul (0.0-0.5); EOSINOPHILS % 1.6 % (0.0-7.0); HEMATOCRIT 31.5 % (37.0-47.0); HEMOGLOBIN 10.2 g/dl (12.0-16.0); LYMPHOCYTES # 2.5 10^3/ul (0.8-2.9); LYMPHOCYTES % 30.9 % (18.0-55.0); MEAN CORPUSCULAR HEMOGLOBIN 26.8 pg (29.0-33.0); MEAN CORPUSCULAR HGB CONC 32.4 g/dl (32.0-37.0); MEAN CORPUSCULAR VOLUME 82.7 fl (72.0-104.0); MEAN PLATELET VOLUME 10.9 fl (7.4-10.4); MONOCYTE # 0.6 10^3/ul (0.3-0.9); MONOCYTES % 7.7 % (0.0-13.0); NEUTROPHIL # 4.8 10^3/ul (1.6-7.5); NEUTROPHILS % 59.1 % (30.0-74.0); PLATELET COUNT 303 10^3/UL (140-415); RED BLOOD COUNT 3.81 10^6/ul (4.20-5.40); RED CELL DISTRIBUTION WIDTH 15.4 % (11.5-14.5); WHITE BLOOD COUNT 8.2 10^3/ul (4.8-10.8)
[2016-11-11 00:42] VITALS: BP 104/55; PULSE 95; RESP 20
[2016-11-11 00:58] LABS: INR 0.92; PROTIME 12.4 Sec (12.2-14.2)
[2016-11-11 00:59] LABS: PARTIAL THROMBOPLASTIN TIME 25.8 Sec (25.0-35.0)
[2016-11-11] MEDS ORDERED: MINERAL OIL LIGHT 10 ML VIAL TOP ONE (07:30)
[2016-11-11] MEDS ORDERED: OXYTOCIN 30 UNITS/LR 500 ML IV SCH (08:00)
--- NOTE | 2016-11-11 08:32 | RADRPT ---
PROCEDURE: US OB. CLINICAL INDICATION: Size and dates TECHNIQUE: Multiple sonographic images of the pelvis and gravid uterus were obtained. The images were reviewed on a PACS workstation. COMPARISON: US PELVIS 11/04/2016 FINDINGS: There is a single viable intrauterine gestation. Cardiac activity is present with 128 beats per min [place]. There is a vertex presentation. The placenta is anterior. There is no evidence for an abruption or placenta previa. Measurements were made in order to determine age. The results are as follows: BPD =8.9 cm HC =32.8 cm AC =35.1 cm FL =7.0 cm Estimated gestational age of approximately 37 weeks and 0 days based on ultrasound measurements. Clinical age: 39 weeks and 6 days. The estimated date of delivery is 12/02/16, based on ultrasound measurements. The EFW = 3295 g, 25.6%, based on LMP age. RPTAT: AA IMPRESSION: Single viable intrauterine gestation of approximately 37 weeks and 0 days based on ultrasound measu rements. Smaller than clinical age by almost 3 weeks. .El Masters MD, MD Date Time Electronically viewed and signed by .El Masters MD, on 11/11/2016 08:31 .S/
[2016-11-11] MEDS ORDERED: FENTAnyl 2MCG/ML-ROPIV 0.2% 100 ML ONE (11:23)
[2016-11-11] MEDS ORDERED: NALOXONE (0.4 MG/ML) INJ IV PRN (12:00)
[2016-11-11] MEDS ORDERED: FENTAnyl 2MCG/ML-ROPIV 0.2% 100 ML BAG EPI SCH (12:00)
--- NOTE | 2016-11-11 14:55 | HP ---
Date/Time of Note Date/Time of Note DATE: 11/11/16 TIME: 14:53 OB - History Hx of Present Chief Complaint: leakage of fluid Estimated Due Date: Nov 12, 2016 : 3 Para: 2 Spontaneous : 0 Therapeutic : 0 Care: Good Care Ultrasounds: Normal mid trimester US Obstetrical Complications: None Medical Complications: None Past Family/Social History * Past Medical, Surgical, Family and Obstetric Histories reviewed from chart. GBS Status: Negative OB Admission Exam Vital Signs Vital Signs Vital Signs Date Time Temp Pulse Resp B/P Pulse Ox O2 Delivery O2 Flow Rate FiO2 11/11/16 00:42 98.6 95 20 104/55 Room Air Physical Exam HEENT: WNL Heart: Rhythm Normal Lungs: Clear, Equal Abdomen: WNL Extremities: Normal Reflexes: Normal Cervical Dilatation: 3cm Effacement: 50% Station: -1 Membranes: Intact Heart Rate: 130's Accelerations: Accelerations Present Decelerations: No Decelerations Varibility: Moderate Last 72 hours Lab Results CBC & BMP 11/11/16 00:15 OB Assessment/Plan Reason for admission: rupture of membranes Plan: Induction Induction Method: per Pitocin Protocol LEONILA JENSEN MD Nov 11, 2016 14:55
--- NOTE | 2016-11-11 14:56 | LDN ---
Date/Time of Note Date/Time of Note DATE: 11/11/16 TIME: 14:55 Delivery Summary Placenta Delivered: Spontaneously Meconium: none Episiotomy: No Anesthesia type: Epidural Sponge & Needle done & correct: Yes All needle counts correct: Yes Any foreign bodies felt in the: No Problems: Infant Delivery Information Sex Infant Sex: female Apgars 1 Minute: 8 5 Minute: 9 Suctioning Nose & mouth suctioned at cathleen: Yes Delee suction performed: No Umbilical Cord Umbilical cord with: 3 Vessels Cord presentations: no nuchal cord Cord Blood was obtained: Yes Mother & Baby Disposition Disposition Mom & Baby to Maternity; Good: Yes LEONILA JENSEN MD Nov 11, 2016 14:56
[2016-11-11 16:00] VITALS: BP 108/52; PULSE 51; RESP 16
[2016-11-11] MEDS ORDERED: ACETAMINOPHEN 325 MG TAB PO PRN (16:00)
[2016-11-11] MEDS ORDERED: CARBOPROST 250 MCG INJ IM PRN (16:00)
[2016-11-11] MEDS ORDERED: MISOPROSTOL 200 MCG TAB PR PRN (16:00)
[2016-11-11] MEDS ORDERED: OXYTOCIN 30 UNITS/LR 500 ML IV PRN (16:00)
[2016-11-11] MEDS ORDERED: METHYLERGONOVINE 0.2 MG INJ IM PRN (16:00)
[2016-11-11] MEDS ORDERED: DIBUCAINE 1% 30 GM OINT PR PRN (16:00)
[2016-11-11] MEDS ORDERED: WITCH HAZEL/GLYCERIN PAD PR PRN (16:00)
[2016-11-11] MEDS ORDERED: BENZOCAINE 20% 56 ML SPRAY TOP PRN (16:00)
[2016-11-11] MEDS: IBUPROFEN 600 MG TAB PO SCH ×2 (17:25→23:35)
[2016-11-11] MEDS: LACTATED RINGER'S 1,000 ML IV* SCH ×2 (17:25→23:41)
[2016-11-11 20:00] VITALS: BP 105/52; PULSE 95; RESP 18
[2016-11-11] MEDS: SENNA/DOCUSATE NA (8.6MG/50MG) TAB PO SCH (21:18)
[2016-11-11 23:30] VITALS: BP 107/58; PULSE 91; RESP 18
[2016-11-12] MEDS: HYDROCODONE/APAP (5/325) TAB PO PRN (04:14)
[2016-11-12 05:00] VITALS: BP 99/50; PULSE 78; RESP 18
[2016-11-12] MEDS: IBUPROFEN 600 MG TAB PO SCH ×3 (06:44→18:57)
[2016-11-12] MEDS: LACTATED RINGER'S 1,000 ML IV* SCH ×3 (07:55→23:37)
[2016-11-12 08:30] VITALS: BP 95/52; PULSE 72; RESP 20
[2016-11-12 09:10] LABS: BASOPHILS % 0.3 % (0.0-2.0); EOSINOPHILS # 0.2 10^3/ul (0.0-0.5); EOSINOPHILS % 1.6 % (0.0-7.0); HEMATOCRIT 28.9 % (37.0-47.0); LYMPHOCYTES # 3.6 10^3/ul (0.8-2.9); LYMPHOCYTES % 32.8 % (18.0-55.0); MEAN CORPUSCULAR HEMOGLOBIN 26.3 pg (29.0-33.0); MEAN CORPUSCULAR HGB CONC 31.1 g/dl (32.0-37.0); MEAN CORPUSCULAR VOLUME 84.5 fl (72.0-104.0); MEAN PLATELET VOLUME 11.1 fl (7.4-10.4); MONOCYTE # 0.5 10^3/ul (0.3-0.9); MONOCYTES % 4.7 % (0.0-13.0); NEUTROPHIL # 6.7 10^3/ul (1.6-7.5); NEUTROPHILS % 60.3 % (30.0-74.0); NUCLEATED RED BLOOD CELLS% 0.2 /100WBC (0.0-0.0); PLATELET COUNT 296 10^3/UL (140-415); RED BLOOD COUNT 3.42 10^6/ul (4.20-5.40); RED CELL DISTRIBUTION WIDTH 15.7 % (11.5-14.5); WHITE BLOOD COUNT 11.1 10^3/ul (4.8-10.8)
[2016-11-12] MEDS: SENNA/DOCUSATE NA (8.6MG/50MG) TAB PO SCH ×2 (10:14→21:34)
[2016-11-12] MEDS ORDERED: INFLUENZA VIRUS VACCINE 0.5 ML (DISPENSING) IM* ONE (14:30)
[2016-11-12 16:30] VITALS: BP 94/53; PULSE 63; RESP 18
[2016-11-12 20:00] VITALS: BP 92/49; PULSE 67; RESP 16
--- NOTE | 2016-11-12 20:58 | DS ---
Date/Time of Note Date/Time of Note DATE: 11/12/16 TIME: 20:58 Obstetrical Discharge Record Final Diagnosis Final Diagnosis: Term delivered Vaginal Delivery Obstetrical Delivery: Spontaneous Condition on Discharge Physical Assessment Voiding: Yes Bowel Movement: Yes Breast: Soft, non-tender, Filling Fundus: Firm Calf Tenderness: No Patient Condition: Stable LEONILA JENESN MD Nov 12, 2016 20:58
[2016-11-13] MEDS: IBUPROFEN 600 MG TAB PO SCH ×3 (00:33→12:05)
[2016-11-13 04:00] VITALS: BP 101/57; PULSE 74; RESP 20
[2016-11-13 07:50] VITALS: BP 105/57; PULSE 60
[2016-11-13] MEDS ORDERED: DIPHTH/TET/ACEL PERTUSS (ADULT) 0.5 ML VIAL IM* ONE (09:00)
[2016-11-13] MEDS ORDERED: INFLUENZA VIRUS VACCINE 0.5 ML (DISPENSING) IM* ONE (09:00)
[2016-11-13] MEDS: HYDROCODONE/APAP (5/325) TAB PO PRN (09:33)
[2016-11-13] MEDS: SENNA/DOCUSATE NA (8.6MG/50MG) TAB PO SCH (09:33)
== END 2016-11-13 15:30 | disposition home or self-care (01) | DRG 775 ==
LOC: OBT 22:44 → L-D 22:45 → OBT 23:10 → L-D 11-11 10:21 → PP1 11-11 15:53
PROVIDERS: ADMIT Obstetrics & Gynecology; ATTEND Obstetrics & Gynecology
PROC: 10E0XZZ Delivery of Products of Conception, External Approach (ICD-10-PCS; principal; 2016-11-11)
DX: O80 Encounter for full-term uncomplicated delivery (principal); Z37.0 Single live birth; Z3A.39 39 weeks gestation of pregnancy
CPT/HCPCS: 62319; 76815; 84112; 85025; 85610; 85730; 86592; 86900; 86901; 87340; 90686; 90715; G0463; J3010; J7120